=== PATIENT | female | born 1940 | race Caucasian/White ===

== ENCOUNTER 2019-11-29 05:57 | Day surgery (SDC) | payer MEDICARE, BC ==
[2019-11-29] MEDS ORDERED: Dextrose 5%-Lactated Ringers 1,000 ML IV SCH (06:30)
[2019-11-29] MEDS ORDERED: Propofol 200 MG/20 ML SDV ONE (07:21)
[2019-11-29] MEDS ORDERED: Pantoprazole 40 MG Vial IVPUSH ONE (07:38)
[2019-11-29 09:34] VITALS: BP 150/91; PULSE 59
--- NOTE | 2019-12-01 10:10 | OR ---
DATE OF PROCEDURE: 11/29/2019 SURGEON: Mark Kline MD PREOPERATIVE DIAGNOSES: 1. Nausea and substernal pain. 2. Separate postprandial mid abdominal pain. POSTOPERATIVE DIAGNOSES: 1. Large hiatal hernia with broad upward extension into esophagogastric junction associated with moderate inflammation. 2. Diffuse gastritis involving body and antrum of the stomach. 3. Separate postprandial periumbilical pain. OPERATIVE PROCEDURES: Esophagogastroduodenoscopy with: 1. Biopsies at esophagogastric junction for histologic evaluation. 2. Biopsies of antrum for CLOtest. ANESTHESIA: IV sedation. INDICATION: The patient presented with some worsening substernal pain associated with nausea. The patient presently is not any proton pump inhibitors. Plan is to proceed with upper GI endoscopy with biopsies as indicated. Potential risks including bleeding and perforation were discussed, and the patient wishes to proceed. DETAILS OF PROCEDURE: The patient was taken to the operating room and placed in a left lateral decubitus position. IV sedation was administered, after which the upper GI endoscope was passed orally through the length of the esophagus, into the stomach with retroflexion view of the fundus, and thereafter through the pyloric channel and into the proximal duodenum. Findings included normal hypopharynx, larynx, upper esophageal sphincter, and esophageal body. 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 There was a moderate amount of inflammation present, but no erosions or ulcers, and no plaquing or suggestion of neoplastic change. Within the stomach, apart from the hiatal hernia, the patient was noted to have more or less diffuse gastritis beginning in the gastric body and extending through the antrum. It was not associated with any erosions or ulcers, but there was quite a bit of edema and redness of the mucosa diffusely in those areas. The pyloric channel and duodenum to the junction of 3rd and 4th portions were otherwise unremarkable. At this point, biopsies were obtained from the antrum and sent for CLOtest for H. pylori. Multiple biopsies were taken from the esophagogastric junction and sent for histologic evaluation. Minimal bleeding from biopsy sites was seen, and the procedure then concluded. The patient was taken to the recovery room in satisfactory condition. The plan will be to give the patient Protonix 40 mg IV in the recovery room and then begin Protonix 40 mg daily. Upon questioning, she appears to have a separate set of pain that occurs in the postprandial period, located more in mid abdominal pain. The patient has extensive vascular history, and given this, we will obtain a CT angiogram to look at the mesenteric blood supply. The patient will be following with Dr. Ríos and/or the Internal Medicine staff in [facility] next week after the CAT scan has been completed. Mark Kline MD /[id number] MTDD
== END 2019-11-29 09:20 | disposition home or self-care (01) ==
LOC: JP.SDS 05:57
PROVIDERS: ATTEND Surgery
DX: K29.70 Gastritis, unspecified, without bleeding (principal); K20.9 Esophagitis, unspecified; K44.9 Diaphragmatic hernia without obstruction or gangrene; I10 Essential (primary) hypertension; I25.10 Atherosclerotic heart disease of native coronary artery without angina pectoris
CPT/HCPCS: 43239; 87081; C9113; J2704; J7121; 88305

== ENCOUNTER 2024-04-08 13:12 | Emergency (ER) | payer MEDICARE, BC ==
[2024-04-08 15:35] LABS: BASOPHILS ABSOLUTE AUTO 0.07 K/uL (0.00-0.10); BASOPHILS PERCENT AUTO 0.5 % (0.1-1.3); EOSINOPHILS ABSOLUTE AUTO 0.07 K/uL (0.00-0.40); EOSINOPHILS PERCENT AUTO 0.5 % (0.0-5.4); HEMATOCRIT 43.8 % (34.3-46.0); HEMOGLOBIN 14.2 g/dL (11.2-15.5); IMMATURE GRAN ABSOLUTE AUTO 0.06 K/uL (0.00-0.23); IMMATURE GRAN PERCENT AUTO 0.5 % (0.0-0.7); LYMPHOCYTES PERCENT AUTO 15.5 % (11.4-47.7); MEAN CORPUSCULAR HEMOGLOBIN 31.3 pg (31.6-35.5); MEAN CORPUSCULAR HGB CONC 32.4 g/dL (31.6-35.5); MEAN CORPUSCULAR VOLUME 96.7 fL (81.4-99.0); MONOCYTES ABSOLUTE AUTO 1.12 K/uL (0.20-0.90); MONOCYTES PERCENT AUTO 8.7 % (3.3-12.6); NEUTROPHILS PERCENT AUTO 74.3 % (40.0-78.1); PLATELET COUNT,PLT 337 K/uL (130-375); RED BLOOD CELL COUNT 4.53 M/uL (3.77-5.24); WHITE BLOOD CELL COUNT,WBC 12.9 K/uL (3.2-11.0)
[2024-04-08 15:51] LABS: ANION GAP 11.1 mmol/L (5.0-14.0); CALCIUM 10.4 mg/dL (8.5-10.1); CREATININE 1.1 mg/dL (0.6-1.0); EST CRCL DRUG DOSING (CG) 32.06 mL/min; POTASSIUM,K 4.4 mmol/L (3.6-5.2)
[2024-04-08] MEDS: Sodium Chloride 0.9% 1,000 ML IV ONE (15:53)
[2024-04-08] MEDS: Sodium Chloride 0.9% 10 ML Syringe FLUSH PRN (15:54)
[2024-04-08] MEDS: cefTRIAXone 1 GM in Sodium Chloride 0.9% 50 ML IV ONE (17:17)
[2024-04-08] MEDS: Metoprolol Tartrate 50 MG Tab PO ONE (17:18)
[2024-04-08] MEDS: LORazepam 2 MG/ML SDV IVPUSH ONE (18:04)
[2024-04-08 18:20] VITALS: BP 143/87
[2024-04-08 18:25] VITALS: PULSE 98
== END 2024-04-08 18:51 | disposition home or self-care (01) ==
LOC: JP.ED 13:12
DX: I48.0 Paroxysmal atrial fibrillation (principal); I10 Essential (primary) hypertension; I25.10 Atherosclerotic heart disease of native coronary artery without angina pectoris; E78.00 Pure hypercholesterolemia, unspecified; K21.9 Gastro-esophageal reflux disease without esophagitis; Z90.49 Acquired absence of other specified parts of digestive tract; Z79.899 Other long term (current) drug therapy; Z79.82 Long term (current) use of aspirin; Z88.2 Allergy status to sulfonamides; Z91.013 Allergy to seafood; Z91.048 Other nonmedicinal substance allergy status; Z88.8 Allergy status to other drugs, medicaments and biological substances
CPT/HCPCS: 36415; 80048; 85025; 93005; 96361; 96365; 96375; 99285; A9270; J0696; J2060; J3490; J7030